=== PATIENT | female | born 1965 | race Hispanic/Latino ===

== ENCOUNTER 2020-02-09 11:30 | Emergency (ER) | payer BC ==
[~2020-02-09] VITALS: Ht 154.9 cm; Wt 92.5 kg
[2020-02-09] MEDS ORDERED: KETOROLAC TROMETHAMINE 30 MG/ML VIAL IM STA (11:47)
--- NOTE | 2020-02-09 11:47 | Emergency Department Note ---
History of Present Illnes History of Present Illness Chief Complaint: right shoulder pain History of Present Illness This is a 54 year old female . 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 Any updates have been documented here. Past Medical History Recent Fever: No Clinical Suspicion of Infectio: No New/Unexplained Change in Ment: No Past Medical History: None Past Surgical History: None, Cholecysctectomy, Hysterectomy Social History Smoking Cessation: Never Smoker Counseling Performed: No Alcohol Use: Occasional Any Illegal Drug Use: No Physically hurt or threatened: No Other Any Pre-Existing Lines (PICC,: No Review of Systems Review of Systems Constitutional: Reports no symptoms EENTM: Reports no symptoms Cardiovascular: Reports no symptoms Respiratory: Reports no symptoms Gastrointestinal: Reports no symptoms Genitourinary: Reports no symptoms Musculoskeletal: Reports as per HPI, Reports joint pain (right shoulder pain worse with lifting arm) Integumentary: Reports no symptoms Neurological: Reports no symptoms Psychological: Reports no symptoms Endocrine: Reports no symptoms Hematological/Lymphatic: Reports no symptoms Review of other systems: All other systems negative Physical Exam Related Data Allergies: Coded Allergies: No Known Allergies (Unverified , 02/09/20) Vital signs reviewed: Yes Physical Exam CONSTITUTIONAL Constitutional: Present well-developed, Present obese HENT HENT: Present normocephalic, Present atraumatic EYES Eyes: Reports PERRL, Reports conjunctivae normal, Reports EOM normal, Reports lids normal NECK Neck: Present ROM normal, Present supple PULMONARY Pulmonary: Present effort normal, Present breath sounds normal CARDIOVASCULAR Cardiovascular: Present regular rhythm, Present heart sounds normal, Present intact distal pulses, Present capillary refill normal, Present normal rate GASTROINTESTINAL Abdominal: Present soft, Present nontender, Present bowel sounds normal GENITOURINARY Genitourinary: Present exam deferred SKIN Skin: Present warm, Present dry MUSCULOSKELETAL Musculoskeletal: Present tenderness (right shoulder anteriorally . decreased ROM to abduction), Present other (right shoulder held in adduction and unable to abduct past 90 degrees without pain); Absent ROM normal, Absent edema, Absent deformity, Absent swelling NEUROLOGICAL Neurological: Present alert, Present oriented x 3, Present DTRs normal, Present no gross motor or sensory deficits PSYCHOLOGICAL Psychological: Present mood/affect normal, Present behavior normal, Present thought content normal Results Imaging Imaging results reviewed: Yes Impressions right shoulder NAD Assessment & Plan Medical Decision Making MDM right shoulder pain possibly rotator cuff injury Assessment & Plan Final Impression: (1) Shoulder pain, right Depart Disposition: HOME, SELF-USP Meds Active Scripts Acetaminophen With Codeine (TYLENOL WITH CODEINE #3 TABLET) 1 Each Tablet, 300 MG PO QID PRN for pain for 3 Days, #12 TAB 0 Refills Prov:MATTHEW ACOSTA MD 02/09/20 MATTHEW ACOSTA MD Feb 09, 2020 11:47
--- NOTE | 2020-02-09 12:14 | Diagnostic Imaging Report ---
SHOULDER 2+VW RT - HOPD - 3 views HISTORY: Pain. COMPARISON: None available. FINDINGS: Bones: No acute displaced fracture. Osseous alignment is within normal limits. Joints: The joint spaces are well-maintained. Soft tissues: The soft tissues appear unremarkable. The partially imaged right hemithorax is clear. IMPRESSION: No acute radiographic abnormality. Signed by: Nevin Rodriguez MD on 02/09/2020 12:11 PM
[2020-02-09] MEDS ORDERED: TYLENOL WITH C1 EACH PO (12:23)
--- OUTSIDE RECORDS SUMMARY | 2020-02-09 12:33 | XMS REPORT | Continuity of Care Document ---
Author Author [facility] Organization [facility] Address [address] [place] [address] [place] [id number] Phone Unavailable Care Team Providers Care Ct Technologist Name Role Phone MATTHEW ACOSTA Attphykayla Unavailable Problems This patient has no known problems. Allergies, Adverse Reactions, Alerts This patient has no known allergies or adverse reactions. Medications This patient has no known medications. Procedures This patient has no known procedures. Results Test Description Test Time Test Comments Results Result Comments Source SHOULDER 2+VW RT - HOPD 2020 12:02:00 [facility] [address] [place], [place] [address] Patient Name: TANNA ELIAS MR #: [id number] : 1965 Age/Sex: 54/F Req #: [id number] Adm Physician: Ordered by: MATTHEW ACOSTA MD Report #: [id number] Location: [facility] Room/Bed: Procedure: HOPD/SHOULDER 2+VW RT - HOPD Exam Date: 02/09/20 Exam Time: 1158 REPORT STATUS: Signed SHOULDER 2+VW RT - HOPD - 3 views HISTORY: Pain. COMPARISON: None available. FINDINGS: Bones: No acute displaced fracture. Osseous alignment is within normal limits. Joints: The joint spaces are well-maintained. Soft tissues: The soft tissues appear unremarkable. The partially imaged right hemithorax is clear. IMPRESSION: No acute radiographic abnormality. Signed by: Sarah Barlow MD on 2020 12:11 PM Dictated By: SARAH BARLOW MD 1211 Transcribed By: PATRICIA on 02/09/20 1211 COPY TO: MATTHEW ACOSTA MD
[2020-02-09] MEDS ORDERED: KETOROLAC TROMETHAMINE 30 MG/ML VIAL ONE (12:40)
== END 2020-02-09 13:50 | disposition home or self-care (01) ==
LOC: FSED 11:50
DX: M25.511 Pain in right shoulder (principal); X50.0XXA Overexertion from strenuous movement or load, initial encounter; Y99.0 Civilian activity done for income or pay
CPT/HCPCS: 73030; 96372; 99283; J1885